=== PATIENT | male | born 1960 | race Caucasian/White ===

== ENCOUNTER 2016-09-22 12:44 | Emergency (ER) | payer OTHER ==
[2016-09-22 12:54] VITALS: RESP 16; TEMP 98.1
--- NOTE | 2016-09-22 13:05 | EDPHY ---
H & P Time Seen by Provider: 09/22/16 13:04 HPI/ROS: Chief complaint. Shoulder pain HPI. 55-year-old male with psychosis and schizoaffective disorder had a shot of Invega in his right shoulder after 3 days ago. He felt that it hit the bone. Since then he has had pain to the right shoulder. He has also had fever it hurts to breathe he has pain to the left shoulder blade as well this somewhat chronic but hurts with movement. He notes the pain in his right shoulder and right chest hurts to walk, brief, move his arm. He has had previous shots without problems. The shot hurt immediately. ROS Constitutional. no fever/chills, no weakness Eyes. no problems with vision ENT. no sore throat, no nasal drainage Cardiovascular. Right shoulder and right chest pain Respiratory. Hurts to breathe but not short of breath Abdominal. no abdominal pain, no nausea/vomiting, no diarrhea . no problems urinating MS. no calf pain/swelling, no neck/back pain, no joint pain Skin. no rash Lymph. no swollen glands Neuro. no headache, no dizziness, no difficulty walking or with speech Past Medical/Surgical History: Past medical history significant for psychosis and schizoaffective disorder, hepatitis-B and C Social History: Single, daily smoker, no alcohol Smoking Status: Current every day smoker Physical Exam: General Appearance: Alert well-developed male mild distress vital signs are stable Eyes: Pupils equal and round no pallor or injection. ENT, Mouth: Mucous membranes are moist. Respiratory: There are no retractions, lungs are clear to auscultation. Cardiovascular: Regular rate and rhythm. Gastrointestinal: Abdomen is soft and nontender, no masses, bowel sounds normal. Neurological: Awake and alert, sensory and motor exams grossly normal. Skin: Warm and dry, no rashes. Musculoskeletal: Tenderness to the lateral deltoid area of the right shoulder. No obvious swelling or deformity Extremities symmetrical, full range of motion. Psychiatric: Patient is oriented X 3, there is no agitation. Constitutional: Initial Vital Signs Temperature (C) 36.7 C 09/22/16 12:52 Heart Rate 91 09/22/16 12:52 Respiratory Rate 16 09/22/16 12:52 Blood Pressure 148/86 H 09/22/16 12:52 O2 Sat (%) 95 02/20/17 12:52 O2 Delivery Mode Room Air Allergies/Adverse Reactions: No Known Allergies Allergy (Verified 07/25/13 20:28) Home Medications: Medication Instructions Recorded Celexa Unk Dose 10/01/12 Cogentin Unk Dose 10/01/12 Trazadone Unk Dose 10/01/12 Hydrocodone Bit/Acetaminophen 1 tab PO Q4-6PRN PRN #14 tab 10/04/12 [Vicodin 5/500] Olanzapine [Zyprexa] 5 mg PO 12/13/13 Risperdal 12/13/13 Indomethacin [Indocin 25 mg (*)] 25 - 50 mg PO TID PRN #20 cap 02/19/14 Omeprazole 20 mg PO DAILY #20 capsule. 02/19/14 Ibuprofen [Motrin] 800 mg PO Q8 #20 tab 04/06/14 clonAZEPAM [Klonopin] 0.25 mg PO 04/06/14 Hydrocodone/APAP 5/325 [[place] 1 each PO Q4-6PRN PRN #14 tab 09/22/16 5/325 (*)] Medical Decision Making - Diagnostics EKG Interpretation: EKG interpreted by me shows normal sinus rhythm with normal interval and axis. QRS is normal there is no significant ST elevation or depression. No arrhythmia. The rate is 74 Imaging: Chest x-ray and right shoulder x-ray interpreted by me as normal Procedures: IV normal saline, monitor Percocet for pain ED Course/Re-evaluation: Re-evaluation the patient is stable. The patient and I discussed imaging study results, laboratory evaluation, treatment plan including criteria for return and the importance of follow-up and further admission Differential Diagnosis: I think this is likely musculoskeletal. I considered acute coronary syndrome as well as pulmonary embolus and pneumothorax. - Data Points Laboratory Results: Laboratory Results 09/22/16 14:32 09/22/16 14:32 09/22/16 09/22/16 09/22/16 14:32 14:32 14:32 WBC 5.40 10^3/uL 10^3/uL (3.80-9.50) RBC 5.51 10^6/uL 10^6/uL (4.40-6.38) Hgb 17.2 g/dL g/dL (13.7-17.5) Hct 48.4 % % (40.0-51.0) MCV 87.8 fL fL (81.5-99.8) MCH 31.2 pg pg (27.9-34.1) MCHC 35.5 g/dL g/dL (32.4-36.7) RDW 13.2 % % (11.5-15.2) Plt Count 136 10^3/uL L 10^3/uL (150-400) MPV 10.4 fL fL (8.7-11.7) Neut % (Auto) 59.6 % % (39.3-74.2) Lymph % (Auto) 27.0 % % (15.0-45.0) [place] % (Auto) 10.4 % % (4.5-13.0) Eos % (Auto) 2.2 % % (0.6-7.6) Baso % (Auto) 0.6 % % (0.3-1.7) Nucleat RBC Rel Count 0.0 % % (0.0-0.2) Absolute Neuts (auto) 3.22 10^3/uL 10^3/uL (1.70-6.50) Absolute Lymphs (auto) 1.46 10^3/uL 10^3/uL (1.00-3.00) Absolute Monos (auto) 0.56 10^3/uL 10^3/uL (0.30-0.80) Absolute Eos (auto) 0.12 10^3/uL 10^3/uL (0.03-0.40) Absolute Basos (auto) 0.03 10^3/uL 10^3/uL (0.02-0.10) Absolute Nucleated RBC 0.00 10^3/uL 10^3/uL (0-0.01) Immature Gran % 0.2 % % (0.0-1.1) Immature Gran # 0.01 10^3/uL 10^3/uL (0.00-0.10) D-Dimer < 0.27 ug/mLFEU ug/mLFEU (0.00-0.50) Sodium 141 mEq/L mEq/L (134-144) Potassium 4.5 mEq/L mEq/L (3.5-5.2) Chloride 103 mEq/L mEq/L (97-110) Carbon Dioxide 26 mEq/l mEq/l (22-31) Anion Gap 12 mEq/L mEq/L (8-16) BUN 18 mg/dL mg/dL (7-23) Creatinine 0.8 mg/dL mg/dL (0.7-1.3) Estimated GFR > 60 Glucose 92 mg/dL mg/dL (70-100) Calcium 10.0 mg/dL mg/dL (8.5-10.4) Troponin I 0.031 ng/mL ng/mL (0-0.034) Medications Given: Discontinued Medications Oxycodone/Acetaminophen (Percocet 5/325) 1 tab PO EDNOW ONE Stop: 09/22/16 14:24 Last Admin: 09/22/16 14:43 Dose: 1 tab Departure - Departure Disposition: Home, Routine, Self-Care Clinical Impression: Right shoulder pain Condition: Good Instructions: Shoulder Pain (ED) Additional Instructions: Sling for 3-4 days. He to right shoulder. Hydrocodone for pain. Return for worsening symptoms. Re-evaluation in 3-4 days if not improved Referrals: Gin Douglas MD [Primary Care Provider] - 3-4 days, if not improved Prescriptions: Hydrocodone/APAP 5/325 [[place] 5/325 (*)] 1 each PO Q4-6PRN PRN #14 tab PRN Reason: Pain, Moderate
[2016-09-22] MEDS ORDERED: OXYCODONE/APAP 5/325 TAB PO ONE (14:23)
[2016-09-22 14:44] LABS: % IMMATURE GRANULYOCYTES 0.2 % (0.0-1.1); ABSOLUTE IMMATURE GRANULOCYTES 0.01 10^3/uL (0.00-0.10); ADD DIFF? NO; ADD MORPH? NO; ADD SCAN? NO; ATYPICAL LYMPHOCYTE FLAG 20 (0-99); FRAGMENT RBC FLAG 0 (0-99); HEMATOCRIT 48.4 % (40.0-51.0); HEMOGLOBIN 17.2 g/dL (13.7-17.5); LEFT SHIFT FLG 0 (0-99); LIPEMIA HEMOLYSIS FLAG 90 (0-99); MEAN CELL HEMOGLOBIN 31.2 pg (27.9-34.1); MEAN CELL HEMOGLOBIN CONCENTR. 35.5 g/dL (32.4-36.7); MEAN CELL VOLUME 87.8 fL (81.5-99.8); MEAN PLATELET VOLUME 10.4 fL (8.7-11.7); PLATELET CLUMPS FLAG 0 (0-99); PLATELET COUNT 136 10^3/uL (150-400); RED BLOOD CELL COUNT 5.51 10^6/uL (4.40-6.38); RED CELL DISTRIBUTION WIDTH 13.2 % (11.5-15.2)
--- NOTE | 2016-09-22 14:48 | CPEKG ---
Heart Rate: 74 RR Interval: 811 P-R Interval: 140 QRSD Interval: 84 QT Interval: 424 QTC Interval: 471 P [place]: 76 QRS [place]: 73 T Wave [place]: 71 EKG Severity - NORMAL ECG - EKG Impression: SINUS RHYTHM Electronically Signed By: Suleiman Zhao 22-Sep-2016 14:59:17
[2016-09-22 15:11] LABS: ANION GAP 12 mEq/L (8-16); CARBON DIOXIDE 26 mEq/l (22-31); CHLORIDE 103 mEq/L (97-110); CREATININE 0.8 mg/dL (0.7-1.3); GLOMERULAR FILTRATION RATE > 60; GLUCOSE 92 mg/dL (70-100); POTASSIUM 4.5 mEq/L (3.5-5.2); SODIUM 141 mEq/L (134-144)
[2016-09-22 15:22] LABS: TROPONIN I 0.031 ng/mL (0-0.034)
[2016-09-22 15:36] VITALS: BP 96/57; PULSE 88; O2SAT 92
== END 2016-09-22 15:35 | disposition home or self-care (01) ==
DX: M25.511 Pain in right shoulder (principal); F17.200 Nicotine dependence, unspecified, uncomplicated
CPT/HCPCS: 71010; 73030; 93005; 99285; A4565

== ENCOUNTER 2016-10-18 10:26 | Emergency (ER) | payer OTHER ==
[2016-10-18 10:31] VITALS: BP 110/74; PULSE 86; RESP 16; TEMP 97.3; O2SAT 96
--- NOTE | 2016-10-18 11:40 | EDPHY ---
H & P Stated Complaint: possible infxn to RUE after invega inj last Time Seen by Provider: 10/18/16 10:37 HPI/ROS: CHIEF COMPLAINT: Right shoulder pain after Invega injection HISTORY OF PRESENT ILLNESS: The patient presents to the ED with complaints of right shoulder pain following an Invega injection to his right shoulder. The patient was seen in the ED approximately 6 weeks ago with similar complaints after receiving an Invega injection in his left shoulder. He was provided with narcotic medications at that point time. He presents to the ED today requesting a refill of narcotic medications. The patient denies fever, erythema or additional complaints. The patient does have some chronic dermatitis on his right arm which is unchanged. The patient denies additional complaints. REVIEW OF SYSTEMS: A comprehensive 10 point review of systems is otherwise negative aside from elements mentioned in the history of present illness. Source: Patient Exam Limitations: No limitations - Personal History Current Tetanus/Diphtheria Vaccine: Yes Current Tetanus Diphtheria and Acellular Pertussis (TDAP): Yes - Medical/Surgical History Hx Asthma: No Hx Chronic Respiratory Disease: No Hx Diabetes: No Hx Cardiac Disease: No Hx Renal Disease: No Hx Cirrhosis: No Hx Alcoholism: No Hx HIV/AIDS: No Hx Splenectomy or Spleen Trauma: No Other PMH: PSYHCOSIS AND SCHIZO EFFECTIVE DISORDER. HERNIA REPAIR, HEP A, B, C - Social History Smoking Status: Current every day smoker - Physical Exam Exam: General Appearance: Alert, disheveled, Eyes: Pupils equal and round no pallor or injection ENT, Mouth: Mucous membranes moist Respiratory: There are no retractions, lungs are clear to auscultation Cardiovascular: Regular rate and rhythm Gastrointestinal: Abdomen is soft and nontender, no masses, bowel sounds normal Neurological: A&O, normal motor function, normal sensory exam, normal cranial nerves Skin: Chronic dermatitis noted to the right arm. No erythema, swelling or fluctuance noted to right shoulder Musculoskeletal: Neck is supple nontender no acute distress Extremities: symmetrical, full range of motion, no clinical evidence of septic arthritis Constitutional: Initial Vital Signs Temperature (C) 36.3 C 10/18/16 10:28 Heart Rate 86 10/18/16 10:28 Respiratory Rate 16 10/18/16 10:28 Blood Pressure 110/74 10/18/16 10:28 O2 Sat (%) 96 10/18/16 10:28 O2 Delivery Mode Room Air Allergies/Adverse Reactions: No Known Allergies Allergy (Verified 07/25/13 20:28) Home Medications: Medication Instructions Recorded Celexa Unk Dose 10/01/12 Cogentin Unk Dose 10/01/12 Trazadone Unk Dose 10/01/12 Hydrocodone Bit/Acetaminophen 1 tab PO Q4-6PRN PRN #14 tab 10/04/12 [Vicodin 5/500] Olanzapine [Zyprexa] 5 mg PO 12/13/13 Risperdal 12/13/13 Indomethacin [Indocin 25 mg (*)] 25 - 50 mg PO TID PRN #20 cap 02/19/14 Omeprazole 20 mg PO DAILY #20 capsule. 02/19/14 Ibuprofen [Motrin] 800 mg PO Q8 #20 tab 04/06/14 clonAZEPAM [Klonopin] 0.25 mg PO 04/06/14 Hydrocodone/APAP 5/325 [[place] 1 each PO Q4-6PRN PRN #14 tab 09/22/16 5/325 (*)] Hydrocodone/APAP 5/325 [[place] 1 - 2 each PO Q6 PRN #6 tab 10/18/16 5/325] Medical Decision Making ED Course/Re-evaluation: The patient presents to the ED with right shoulder pain following a injection of Invega. The patient will be given a short course of Vicodin. I have told the patient that we will not refill Vicodin for pain after psychotropic injections in the future. He will need to have his pain managed by his primary care provider at [facility]. Departure - Departure Disposition: Home, Routine, Self-Care Clinical Impression: Right shoulder pain Condition: Good Instructions: Shoulder Pain (ED) Additional Instructions: 1. You have been given a short course of pain medication. We will be unable to give you narcotic pain medications in the future for any chronic pain surrounding your psychiatric injections. 2. Please follow up with your regular physician as scheduled. Referrals: Gin Douglas MD [Primary Care Provider] - As per Instructions
== END 2016-10-18 12:02 | disposition home or self-care (01) ==
DX: M25.511 Pain in right shoulder (principal); F17.200 Nicotine dependence, unspecified, uncomplicated

== ENCOUNTER 2017-03-30 08:06 | Emergency (ER) | payer OTHER ==
[2017-03-30 08:19] VITALS: RESP 18
--- NOTE | 2017-03-30 08:48 | EDPHY ---
H & P Stated Complaint: Low back and groin pain after walking down a hill "real fast"; no injury Time Seen by Provider: 03/30/17 08:47 - Personal History Current Tetanus Diphtheria and Acellular Pertussis (TDAP): Yes - Medical/Surgical History Hx Asthma: No Hx Chronic Respiratory Disease: No Hx Diabetes: No Hx Cardiac Disease: No Hx Renal Disease: No Hx Cirrhosis: No Hx Alcoholism: No Hx HIV/AIDS: No Hx Splenectomy or Spleen Trauma: No Other PMH: PSYCHOSIS AND SCHIZO EFFECTIVE DISORDER. HERNIA REPAIR, HEP A, B, C - Social History Smoking Status: Current every day smoker Constitutional: Initial Vital Signs Temperature (C) 36.4 C 03/30/17 08:10 Heart Rate 76 03/30/17 08:10 Respiratory Rate 18 03/30/17 08:10 Blood Pressure 122/93 H 03/30/17 08:10 O2 Sat (%) 95 03/30/17 08:10 O2 Delivery Mode Room Air Allergies/Adverse Reactions: No Known Allergies Allergy (Verified 03/30/17 08:13) Home Medications: Medication Instructions Recorded Cogentin Unk Dose 10/01/12 clonAZEPAM [Klonopin] 0.25 mg PO 04/06/14 Diclofenac Sodium [Voltaren-XR] 100 mg PO DAILY #20 tab.sr.24h 03/30/17 Efzima 03/30/17 Paliperidone Palmitate [Invega 117 mg IM ONCE 03/30/17 Sustenna] Medical Decision Making - Diagnostics Imaging Results: Imaging Impressions Lumbar Spine X-Ray 03/30/17 09:04 Impression: 1. No acute fracture. 2. Severe degenerative disk and facet arthropathy at L5-S1 is worse since 2009. Imaging: Discussed imaging studies w/ crew caller Radiologist, I viewed and interpreted images myself ED Course/Re-evaluation: CHIEF COMPLAINT: Back pain HISTORY OF PRESENT ILLNESS: The patient is a 56 y/o male complaining of mild lumbar back pain after walking down a hill briskly on Thursday, 3 days ago. He denies falling or other trauma; he cannot identify other precipitating causes for this symptoms today. Denies weakness, paraesthesias, difficulty walking, incontinence. He denies pertinent medical history. REVIEW OF SYSTEMS: A 10 point review of systems was performed and is negative with the exception of the elements mentioned in the history of present illness. PHYSICAL EXAM: HR, BP, O2 Sat, RR. Temp noted General Appearance: Alert, well hydrated, appropriate, and non-toxic appearing. Head: Atraumatic without scalp tenderness or obvious injury Eyes: Pupils equal, round, reactive to light and accommodation, EOMI, no trauma , no injection. Nose: Atraumatic, no rhinorrhea, clear. Throat: Mucus membranes moist. Neck: Supple, nontender, no lymphadenopathy. Respiratory: No retractions, no distress, no wheezes, and no accessory muscle use. Lungs are clear to auscultation bilaterally. Cardiovascular: Regular rate and rhythm, no murmurs, rubs, or gallops. Good capillary refill all extremities. Gastrointestinal: Abdomen is soft, nontender, non-distended, no masses, no rebound, no guarding, no peritoneal signs. Musculoskeletal: Mild midline lumbar spine tenderness. Normal active ROM of all extremities, atraumatic. Neurological: Alert, appropriate, and interactive. Non-focal neuro. Skin: No rashes, good turgor, no nodules on palpation. Past medical history: Hep A, B, and C, psychosis and schizo effective disorder Past surgical history: Hernia repair Family history: Denies Social history: Smoker, lives in [place], un-employed Past medical records reviewed for ED visit from Dr. Efrain Bashir on 10/18/16 DIAGNOSTICS/PROCEDURES/CRITICAL CARE TIME: Lumbar spine x-ray: Negative DIFFERENTIAL DIAGNOSIS: The differential diagnosis for the patient's back pain included but was not limited to musculoskeletal pain, epidural abscess, herniated disk, spinal fracture, and intra-abdominal causes including urinary system. MEDICAL DECISION MAKING: The patient is a 56 y/o male who presents with lumbar spine tenderness for three days. On exam abdomen is benign and he is neurovascularly intact. Plan on lumbar spine x-ray to rule acute osseous abnormality. Reassessed patient and discussed imaging results. X-ray is negative. Discussed follow up with a back specialist for unimproved symptoms. Diclofenac prescribed for pain management. Return precautions provided, he is comfortable with this plan. Departure - Departure Disposition: Home, Routine, Self-Care Clinical Impression: Lumbar back pain Qualifiers: Chronicity: unspecified Back pain laterality: unspecified Sciatica presence: without sciatica Qualified Code(s): M54.5 - Low back pain Condition: Good Instructions: Low Back Strain (ED), Back Pain (ED) Additional Instructions: 1. Take Diclofenac as prescribed for pain. Do not take ibuprofen. 2. Follow up with your primary care provider for unimproved symptoms in the next 3-5 days. 3. Return to the ED for severe worsening of your condition. Referrals: Gin Douglas MD [Primary Care Provider] - As per Instructions Prescriptions: Diclofenac Sodium [Voltaren-XR] 100 mg PO DAILY #20 tab.sr.24h Report Scribed for: Zaid Caba Report Scribed by: Verito Farley Date of Report: 03/30/17 Time of Report: 09:43
[2017-03-30 09:55] VITALS: BP 141/97; PULSE 73; TEMP 97.7; O2SAT 91
== END 2017-03-30 09:55 | disposition home or self-care (01) ==
DX: M54.5 Low back pain (principal); F17.200 Nicotine dependence, unspecified, uncomplicated

== ENCOUNTER 2017-05-31 11:01 | Emergency (ER) | payer OTHER ==
--- NOTE | 2017-05-31 13:26 | EDPHY ---
General Narrative: CHIEF COMPLAINT: Right finger laceration HISTORY OF PRESENT ILLNESS: Patient complains of laceration of the right little finger. This occurred this morning when removing a knife in his home. This fell and struck him in the right little finger. TIME OF INJURY: 10:00 a.m. TETANUS STATUS: Less than 2 years ago MEDICAL/SURGICAL/SOCIAL HISTORY: Hepatitis-C, schizophrenia Daily smoker. REVIEW OF SYSTEMS: Ten systems reviewed and are negative unless otherwise noted in the HPI EXAMINATION General Appearance: Alert, no distress Head: normocephalic, atraumatic Cardiovascular: Pulses normal throughout. Symmetric radial at 2+. Brisk cap refill Neurological: A&O, sensory symmetric, strength symmetric. Good strength of the interossei pain Skin: Warm and dry, no rash. One 0.5 cm laceration on the right little finger , radial side. No involvement of the nail. This is over the distal phalanx. No bleeding. No foreign body. No tendon injury Extremities: Mild tenderness over the area laceration. There is full flexion extension of all fingers on the right hand. No deficits. No evidence of tendon injury. Neurovascular intact distal to the laceration DIFFERENTIAL DIAGNOSES: Including but not limited to laceration, complex laceration, laceration with an injury MDM: 12:20 p.m. Laceration to the right little finger. He is neurovascular intact distally. The digital block is been administered. Proceed with irrigation closure. 1:20 p.m. Laceration of the right index finger over the distal phalanx without involvement of the nail. This has been closed without complication. He is neurovascular intact pre and postprocedure. No evidence of tendon injury. No foreign body. Discharged home with medications as prescribed. Wound care discussed. Adaptic and tube gauze applied. This is a 2 day dressing. Return here in 7-10 days for suture removal. Return sooner for signs of infection as discussed. PROCEDURE: Digital Block Indication: Finger laceration Consent: Verbal Location: Right little finger Anesthesia: Lidocaine 1% plain, 0.25% Marcaine plain, 5mL Description: Base of the finger was prepped. The above was infused without difficulty. Tolerated well. Good anesthesia. Complications: None PROCEDURE: Laceration repair Consent: Verbal Location: Right little finger, radial side, distal phalanx Length of repair: 1.5 cm Complexity: Simple Layer involvement: Single Anesthesia: Digital block Irrigation: Extensive Debridement: None Procedure description: Following good anesthesia, the wound was copiously irrigated. Wound bed was explored and there is no foreign body noted. No tendon exposure Wound borders were approximated well with good hemostasis. Tolerated well without complication. Suture/Staple material: 5-0 Prolene. Four simple interrupted sutures Wound care: Routine as discussed Suture/Staple removal: 7-10 Days ED Precautions: Worsening pain. Erythema, edema, cyanosis, pallor, paresthesia or anesthesia. - History Smoking Status: Current every day smoker - Objective Vital Signs: Initial Vital Signs Temperature (C) 98.6 F 05/31/17 11:05 Heart Rate 81 05/31/17 11:05 Respiratory Rate 16 05/31/17 11:05 Blood Pressure 112/78 05/31/17 11:05 O2 Sat (%) 98 05/31/17 11:05 O2 Delivery Mode Room Air Allergies/Adverse Reactions: No Known Allergies Allergy (Verified 03/30/17 08:13) Home Medications: Medication Instructions Recorded Cogentin Unk Dose 10/01/12 clonAZEPAM [Klonopin] 0.25 mg PO 04/06/14 Paliperidone Palmitate [Invega 117 mg IM ONCE 03/30/17 Sustenna] Amoxicillin/Clavulanate Pot 875 mg PO BID #20 tab 05/31/17 [Augmentin 875 MG TAB (*)] Departure - Departure Disposition: Home, Routine, Self-Care Clinical Impression: Laceration Condition: Good Instructions: Care For Your Stitches (ED), Laceration (ED) Additional Instructions: 1. Medication as prescribed to completion 2. Daily wound care as discussed 3. Return to emergency department in 7-10 days for suture removal Referrals: Gin Douglas MD [Primary Care Provider] - As per Instructions Prescriptions: Amoxicillin/Clavulanate Pot [Augmentin 875 MG TAB (*)] 875 mg PO BID #20 tab
[2017-05-31 13:41] VITALS: BP 125/97; PULSE 95; RESP 18; TEMP 98.2; O2SAT 94
== END 2017-05-31 13:41 | disposition home or self-care (01) ==
LOC: EEVIPCON 11:01
PROC: 0HQFXZZ Repair Right Hand Skin, External Approach (ICD-10-PCS; principal; 2017-05-31)
DX: S61.216A Laceration without foreign body of right little finger without damage to nail, initial encounter (principal); F17.200 Nicotine dependence, unspecified, uncomplicated; W26.0XXA Contact with knife, initial encounter; Y92.009 Unspecified place in unspecified non-institutional (private) residence as the place of occurrence of the external cause

== ENCOUNTER 2017-11-08 16:23 | Emergency (ER) | payer OTHER ==
--- NOTE | 2017-11-08 17:19 | EDPHY ---
General - History Smoking Status: Current every day smoker Time Seen by Provider: 11/08/17 17:13 Narrative: CHIEF COMPLAINT: Hernia, cough HISTORY OF PRESENT ILLNESS: Patient has 2 complaints. The 1st is "hernia in my abdomen." He reports that this has been present for nearly a year. It is periumbilical/ventral. It has become increasingly painful over the past few weeks. He has never been evaluated for this by surgeon. He has had 4 previous hernia repairs. No vomiting. No bowel movement today but did have a bowel movement 2 days ago. No fever chills. His 2nd complaint is cough. This been present for 3-4 days. Productive. Difficulty with breathing with this. He feels that he may have been wheezing. He has no chest pain but does have a painful cough. No shortness of breath unless he lays supine. No other associated complaints or modifying factors. REVIEW OF SYSTEMS: Ten systems reviewed and are negative unless otherwise noted in the HPI PCP: Dr. Douglas SPECIALISTS: None currently PAST MEDICAL HISTORY: Hernia repair x4 at outside facilities, schizoaffective PAST SURGICAL HISTORY: Hernia repair x4 SOCIAL HISTORY: Daily smoker. Occasional alcohol and marijuana use. Currently on disability and does not work FAMILY HISTORY: Noncontributory EXAMINATION General Appearance: Alert, no distress. Strong odor of THC about him Head: normocephalic, atraumatic Eyes: Pupils equal and round, no conjunctival pallor or injection ENT, Mouth: Mucous membranes moist. Uvula midline. There is erythema of the throat that appears exogenous. No exudate. Airway is widely patent. Neck: Normal inspection, supple, non-tender. No meningeal signs. Respiratory: Scattered rhonchi. No wheezing. No crackles. No diminishment no consolidation. No retractions or distress Cardiovascular: Regular rate and rhythm. No murmur Gastrointestinal: Abdomen is soft and nondistended. There is an obvious periumbilical hernia that easily reduces with palpation and with complete relaxation of the abdomen in supine position. No palpable mass. No tenderness in the remaining quadrants. No guarding. Bowel sounds are present in the area of hernia. Neurological: A&O, nonfocal, normal gait Skin: Warm and dry, no rash. Multiple tattoos Extremities: Nontender, no pedal edema Psychiatric: Mood and affect normal DIFFERENTIAL DIAGNOSES: Including but not limited to ventral hernia, incarcerated hernia, strangulated hernia, periumbilical hernia, pneumonia, bacterial bronchitis, viral bronchitis , pneumonitis MDM: 5:30 p.m. Large periumbilical/ventral hernia that is easily reducible. This reduces spontaneously with rest and also with simple palpation. His abdominal exam is otherwise benign. I do not appreciate any evidence of incarceration or strangulation. I do not feel he warrants a CT scan of the abdomen pelvis at this time. He has no vomiting. No constipation. No fever. He has secondary complaint of cough that suggest bronchitis on examination. I do not appreciate pneumonia. Vital signs are within normal limits. He is a smoker, thus I will treat him with antibiotics for the possibility of bacterial bronchitis. We discussed smoking cessation. We discussed anti-inflammatories, over-the- counter cough medicine and ED precautions for both the scenarios. He has an appointment tomorrow morning with his primary care physician Dr. Douglas. He has instructions to discuss this with her and I provided the on-call surgeon for him. He is comfortable this plan and discharged home stable condition SUPERVISION: Patient was independently examined, but I discussed the case with my secondary supervising physician Dr. Murphy ([facility]) The patient was evaluated and managed by the physician assistant professor of spanish. I have reviewed this chart and I agree with the findings and plan of care as documented , as indicated by my signature. I am the secondary supervising physician. ( Courtney Murphy) - Objective Vital Signs: Initial Vital Signs Temperature (C) 36.4 C 11/08/17 16:53 Heart Rate 87 11/08/17 16:53 Respiratory Rate 18 11/08/17 16:53 Blood Pressure 101/71 11/08/17 16:53 O2 Sat (%) 94 11/08/17 16:53 O2 Delivery Mode Room Air Allergies/Adverse Reactions: No Known Allergies Allergy (Verified 11/08/17 16:53) Home Medications: Medication Instructions Recorded Cogentin Unk Dose 10/01/12 clonAZEPAM [Klonopin] 0.25 mg PO 04/06/14 Paliperidone Palmitate [Invega 117 mg IM ONCE 03/30/17 Sustenna] Amoxicillin/Clavulanate Pot 875 mg PO BID #19 tab 11/08/17 [Augmentin 875 MG TAB (*)] Benzonatate [Tessalon Pearles (RX)] 100 mg PO Q8 PRN #15 cap 11/08/17 Dextromethorphan Polistirex 30 mg PO BID #1 btl 11/08/17 [Delsym] Medications Given: Discontinued Medications Amoxicillin/Clavulanate Potassium (Augmentin 875mg) 875 mg PO EDNOW ONE PRN Reason: Protocol Stop: 11/08/17 17:35 Last Admin: 11/08/17 17:53 Dose: 875 mg Benzonatate (Tessalon Pearles) 200 mg PO EDNOW ONE Stop: 11/08/17 17:43 Last Admin: 11/08/17 17:53 Dose: 200 mg Departure - Departure Disposition: Home, Routine, Self-Care Clinical Impression: Acute bronchitis, Ventral hernia without obstruction or gangrene Condition: Good Instructions: Umbilical Hernia (ED), Ventral Hernia (ED) Additional Instructions: 1. Medication as prescribed to completion 2. Keep your appointment tomorrow morning as scheduled with Dr. Douglas 3. You will need to discuss referral to general surgeon for the abdominal hernia. 4. Return to the emergency department for vomiting, fever, increasing abdominal pain, constipation or any chest pain Referrals: Gin Douglas MD [Primary Care Provider] - As per Instructions Arleth Bernard MD [Medical Doctor] - As per Instructions Prescriptions: Amoxicillin/Clavulanate Pot [Augmentin 875 MG TAB (*)] 875 mg PO BID #19 tab Benzonatate [Tessalon Pearles (RX)] 100 mg PO Q8 PRN #15 cap PRN Reason: Cough, Mild Dextromethorphan Polistirex [Delsym] 30 mg PO BID #1 btl
[2017-11-08] MEDS ORDERED: AMOXICILLIN/CLAVULANATE POT 875/125 MG TAB PO ONE (17:34)
[2017-11-08] MEDS ORDERED: BENZONATATE 100 MG CAP PO ONE (17:42)
[2017-11-08 18:01] VITALS: BP 105/72
== END 2017-11-08 18:00 | disposition home or self-care (01) ==
DX: J20.9 Acute bronchitis, unspecified (principal); K43.9 Ventral hernia without obstruction or gangrene; F17.200 Nicotine dependence, unspecified, uncomplicated

== ENCOUNTER 2018-02-04 18:15 | Inpatient (IN) | payer OTHER ==
--- NOTE | 2018-02-04 18:28 | EDPHY ---
General Time Seen by Provider: 02/04/18 18:19 Narrative: CHIEF COMPLAINT: M1 hold HISTORY OF PRESENT ILLNESS: Patient presents on an M1 hold with reported schizoaffective disorder, medication noncompliance, paranoid delusions and lack of self-care. The patient will not answer any by questions and denies any complaints. I am not able to obtain any modifying factors, associated complaints or any further information due to lack of cooperation from the patient. I have reviewed the M1 documentation. PSYCHIATRIC DIAGNOSES: Will not answer my questions, but there is documentation of schizoaffective disorder PRIOR PSYCHIATRIC EVALUATIONS: Will not answer my questions M1/DETAINER: By [facility] WILDLIFE PROTECTOR at 1800 today REVIEW OF SYSTEMS: Ten systems reviewed and are negative unless otherwise noted in the HPI EXAMINATION General Appearance: Alert, no distress Head: normocephalic, atraumatic Eyes: Pupils equal and round, no conjunctival pallor or injection. Will not comply with EOM testing. He is tracking symmetrically in following my movements. ENT, Mouth: Mucous membranes moist. Poor dentition Neck: Normal inspection. Moving his neck in all 4 planes without complaints Respiratory: Lungs are clear to auscultation. No wheezing rhonchi or crackles Cardiovascular: Regular rate and rhythm. No murmur Neurological: Normal steady gait. He will not answering my questions regarding his mental status Skin: Multiple tattoos. Appears to be grossly intact Extremities: Moving extremities spontaneously but will not allow examination. Psychiatric: Flat affect. Will not answer any of my questions DIFFERENTIAL DIAGNOSES: Including but not limited to schizoaffective disorder, schizophrenia, paranoid delusions, psychotic break, medication noncompliance, polysubstance abuse MDM: 6:25 p.m. M1 due to reported schizoaffective disorder with paranoid delusions and medication noncompliance. The patient will not provide any information to me whatsoever and keep still me to "read the report." He does not appear to be in any acute distress. I have reviewed his vital signs of a within normal limits. He has been placed on an M1 hold prior to arrival will proceed with medical clearance for evaluation. 7:40 p.m. CBC and chemistry unremarkable. Pending urine drug screen at this time. 8:20 p.m. Patient has been medically cleared and is currently pending placement for inpatient psychiatric care. 8:50 p.m. Notified by Emi that patient has been accepted to [address] [place] [address] [facility]. The accepting physician is Dr. Adkins. Dr. Spencer will sign the EMTALA form. The patient has remained calm and cooperative in this emergency department without the need for medication intervention. SUPERVISION: Patient was independently examined, but I discussed the case with my secondary supervising physician Dr. Spencer - History Smoking Status: Current every day smoker - Objective Vital Signs: Initial Vital Signs Temperature (C) 97.7 F 02/04/18 18:15 Heart Rate 76 02/04/18 18:15 Respiratory Rate 16 02/04/18 18:15 Blood Pressure 104/62 02/04/18 18:15 O2 Sat (%) 95 02/04/18 18:15 O2 Delivery Mode Room Air Allergies/Adverse Reactions: No Known Allergies Allergy (Verified 11/08/17 16:53) Home Medications: Medication Instructions Recorded Cogentin Unk Dose 10/01/12 clonAZEPAM [Klonopin] 0.25 mg PO 04/06/14 Paliperidone Palmitate [Invega 117 mg IM ONCE 03/30/17 Sustenna] Amoxicillin/Clavulanate Pot 875 mg PO BID #19 tab 11/08/17 [Augmentin 875 MG TAB (*)] Benzonatate [Tessalon Pearles (RX)] 100 mg PO Q8 PRN #15 cap 11/08/17 Dextromethorphan Polistirex 30 mg PO BID #1 btl 11/08/17 [Delsym] Laboratory Results: Laboratory Results 02/04/18 18:54 02/04/18 18:54 02/04/18 02/04/18 02/04/18 19:20 18:54 18:54 WBC 3.21 10^3/uL L 10^3/uL (3.80-9.50) RBC 4.87 10^6/uL 10^6/uL (4.40-6.38) Hgb 15.0 g/dL g/dL (13.7-17.5) Hct 42.1 % % (40.0-51.0) MCV 86.4 fL fL (81.5-99.8) MCH 30.8 pg pg (27.9-34.1) MCHC 35.6 g/dL g/dL (32.4-36.7) RDW 13.6 % % (11.5-15.2) Plt Count 92 10^3/uL L 10^3/uL (150-400) MPV 10.6 fL fL (8.7-11.7) Neut % (Auto) 62.3 % % (39.3-74.2) Lymph % (Auto) 26.2 % % (15.0-45.0) [place] % (Auto) 7.2 % % (4.5-13.0) Eos % (Auto) 3.1 % % (0.6-7.6) Baso % (Auto) 0.6 % % (0.3-1.7) Nucleat RBC Rel Count 0.0 % % (0.0-0.2) Absolute Neuts (auto) 2.00 10^3/uL 10^3/uL (1.70-6.50) Absolute Lymphs (auto) 0.84 10^3/uL L 10^3/uL (1.00-3.00) Absolute Monos (auto) 0.23 10^3/uL L 10^3/uL (0.30-0.80) Absolute Eos (auto) 0.10 10^3/uL 10^3/uL (0.03-0.40) Absolute Basos (auto) 0.02 10^3/uL 10^3/uL (0.02-0.10) Absolute Nucleated RBC 0.00 10^3/uL 10^3/uL (0-0.01) Immature Gran % 0.6 % % (0.0-1.1) Immature Gran # 0.02 10^3/uL 10^3/uL (0.00-0.10) Sodium 135 mEq/L mEq/L (135-145) Potassium 3.5 mEq/L mEq/L (3.3-5.0) Chloride 105 mEq/L mEq/L (97-110) Carbon Dioxide 25 mEq/l mEq/l (22-31) Anion Gap 5 mEq/L L mEq/L (8-16) BUN 11 mg/dL mg/dL (7-23) Creatinine 0.8 mg/dL mg/dL (0.7-1.3) Estimated GFR > 60 Glucose 106 mg/dL H mg/dL (70-100) Calcium 8.7 mg/dL mg/dL (8.5-10.4) Urine Opiates Screen NEGATIVE (NEGATIVE) Urine Barbiturates NEGATIVE (NEGATIVE) Ur Phencyclidine Scrn NEGATIVE (NEGATIVE) Ur Amphetamine Screen NON-NEGATIVE H (NEGATIVE) U Benzodiazepines Scrn NEGATIVE (NEGATIVE) Urine Cocaine Screen NEGATIVE (NEGATIVE) U Marijuana (THC) Screen NON-NEGATIVE H (NEGATIVE) Ethyl Alcohol < 10 mg/dL mg/dL (0-10) Medications Given: Discontinued Medications Lorazepam (Ativan) 1 mg PO EDNOW ONE Stop: 02/04/18 19:15 Last Admin: 02/04/18 19:16 Dose: 1 mg Ranitidine HCl (Zantac) 150 mg PO EDNOW ONE Stop: 02/04/18 19:01 Last Admin: 02/04/18 19:04 Dose: 150 mg Departure - Departure Disposition: [facility] IP Clinical Impression: Medical clearance for psychiatric admission Schizoaffective disorder Qualifiers: Schizoaffective disorder type: unspecified Qualified Code(s): F25.9 - Schizoaffective disorder, unspecified Condition: Good
[2018-02-04] MEDS ORDERED: RANITIDINE SYRUP 15 MG/1 ML UDSYR PO ONE (18:50)
[2018-02-04] MEDS ORDERED: RANITIDINE HCL 150 MG/10 ML UDCUP PO ONE (19:00)
[2018-02-04 19:14] LABS: PLATELET COUNT 92 10^3/uL (150-400)
[2018-02-04] MEDS ORDERED: LORazepam 1 MG TAB PO ONE (19:14)
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
--- NOTE | 2018-02-04 21:33 | ASMTTCLDSP ---
TLC Discharge Disposition Disposition: Answers: Admit Discharge Concerns/Recommendations: Notes: In consultation with [facility] ED physician, Reilly Spencer MD, and on-call psychiatrist, Gissel Adkins MD, both concurred that pt appears to meet 27-65 criteria requiring psychiatric hospitalization as pt appears to be gravely disabled due to a mental illness condition Type of Hold: Answers: M1/72-hour Hold Hold initiated by: Answers: Other Notes: SUPERVISING BAILIFF at [facility] Date Signed: 02/04/2018 09:33 PM Electronically Signed By:Emi Rich
[2018-02-04] MEDS ORDERED: LORazepam 1 MG TAB PO PRN (22:23)
[2018-02-04] MEDS ORDERED: OLANZapine DISINTEGR 5 MG TAB PO PRN (22:23)
[2018-02-04] MEDS ORDERED: NICOTINE POLACRILEX 2 MG GUM B PRN (22:23)
[2018-02-04] MEDS ORDERED: MAGNESIUM HYDROXIDE 30 ML UDCUP PO PRN (22:23)
[2018-02-04] MEDS ORDERED: MAG HYDROX/AL HYDROX/SIMETH 30 ML UDCUP PO PRN (22:23)
[2018-02-04] MEDS ORDERED: ACETAMINOPHEN 325 MG TAB PO PRN (22:23)
[2018-02-05] MEDS: NICOTINE 14 MG/24 HR PATCH TD SCH (08:48)
--- NOTE | 2018-02-05 10:21 | ASMTBHMTP ---
Master Treatment Plan Master Treatment Plan Answers: Mood Instability with for: Psychosis Date: 02/05/2018 Diagnosis on Admission: Schizoaffective Expected length of stay: 3-5 Days Reason for admission: Notes: 57 year old male, open to P who was cabbed to the [facility] by Dr. Fried for help to get back on his medications. Patient's stated presenting problems: Notes: Had a meltdown, due to being out of medication Patient's goals for treatment: Notes: Go home Patient's strengths: Notes: Play guitar Identify supports outside of hospital: Notes: Got a whole house full of support Discharge criteria: Notes: Patient will demonstrate more stable mood by discharge Initial disposition plan/considerations: Notes: Return home Master Treatment Plan Required Signatures Psychiatrist signature: Answers: NIEVES Crespo: RN on-shift signature: Answers: RN: Patient signature: Answers: Patient: Date Signed: 02/05/2018 10:20 AM Electronically Signed By:Caitlin Gill
--- NOTE | 2018-02-05 11:50 | BAPA ---
[f rep st] ADMISSION PSYCHIATRIC ASSESSMENT DATE OF SERVICE: 02/05/2018 CHIEF COMPLAINT: "had a meltdown due to being out of medications." HISTORY OF PRESENT ILLNESS: Pertinent data from the ED note dated 02/04/2018: The patient presented to the ER on M1 hold with reported schizoaffective disorder, medication noncompliance, paranoid delusions, and lack of self care. The patient did not answer any questions and denied any complaints. The patient did not cooperate. Therefore, further information was unable to be obtained during the ER assessment. Pertinent data per [facility] evaluation: The patient is on an M1 hold. Hold was placed 02/04/2018 at 6:00 p.m. Patient statement to the [facility] millinery department manager: "My nurse told me I should come here, take a little rest and go home." [facility] reported that the patient is open to [facility], who recommended that patient go to the walk-in clinic by Dr. Fried for help to get back on his medications. The patient reported he has not been eating, is overwhelmed by preparing, eating and cleaning up food. [facility] noted that the patient has been off his medications for 7 days. The patient reported auditory hallucinations, visual hallucinations, command auditory hallucinations saying his voices and sees things "23/02." The patient does not report any specific ways the voices are controlling him. The patient was admitted involuntarily and is on an M1 hold due to being gravely disabled. Is hospitalized for safety, crisis stabilization and medication evaluation. The patient describes circumstances that led to current hospitalization as having no medications and reported to this INSPECTOR PACKAGER that he does not know what medications he needs to be on or has been prescribed in the past. The patient reports current mental health illness as schizoaffective disorder , bipolar type. The patient reports to this INSPECTOR PACKAGER that he was diagnosed with this disorder about 3 years ago. The patient reports current alcohol and/or substance abuse that contributed to current hospitalization as was using substances, but it has been weeks ago. The patient's UDS was positive for amphetamine and positive for marijuana. When ask about this, the patient reported he had no idea how his UDS could be positive for the substances because he did not use any of these substances prior to his admission. The patient describes current psychiatric symptoms as auditory hallucinations. The patient is unwilling to provide any further details at this time regarding these symptoms. The patient does not appear to be attending to internal stimuli. The patient denies other psychiatric symptoms including symptoms of depression, sarika, anxiety, attention deficit hyperactivity disorder, OCD, PTSD , and any other symptom of a psychiatric disorder. The patient does appear to be agitated at this time. The patient describes current psychiatric symptoms are impacting managing his day-to-day life described as unemployed. States he does socialize with friends from time to time. The patient reports he does get along with his family. Enjoys fishing and hunting and reports he is currently not satisfied with his life. The patient denies current suicidal ideation. Denies current homicidal ideation and denies current self-injurious ideation. The patient reports protective factors or reasons to live as his children. Reports his future goal is seeing his children. Reports his children live in [place], [place]. The patient describes his support network as himself. The patient reports he sees Dr. Fried for medication management and reports he also sees [facility] for therapy. PAST PSYCHIATRIC HISTORY: The patient describes the following psychiatric history: The patient reports a history of schizoaffective disorder. Reports he has been on Zyprexa, Invega, Ativan, and several other medications in the past. However, reports that none of these medications were helpful and the medications he is currently on have been prescribed by Dr. Fried at [facility]. The patient reports he wants to continue these medications and case management is currently in the process of contacting Dr. Fried's office to get the list of medications so they can be restarted for the patient during this hospitalization. The patient reports he has been hospitalized in inpatient psychiatric hospital before. However, he states he cannot remember when, he cannot remember where, he cannot remember how many times. The patient describes no history of withdrawal from drugs or alcohol. The patient reports he has attempted suicide a long time ago, but he does not remember how, exactly when or exactly why. The patient reports no history of self-injurious behavior. ALLERGIES: No known drug allergies. PAST MEDICAL HISTORY: The patient describes the following: The patient reports no history of neurological disorder, traumatic brain injury, major illnesses or major hospitalizations. SOCIAL HISTORY: The patient describes the following social history: The patient reports he was born in [place] and was raised the majority of his life in [place] by both parents. The patient reports he is currently living in [place], [place] at [address]. The patient describes he met all his developmental milestones. Reports no learning delays or difficulties and describes his sexual orientation is heterosexual. The patient reports he is currently not in a relationship, has been once, once and provides no further details regarding his past marital history. The patient reports he has 2 children. States he is unemployed. His highest level of education is high school. Reports no duty history. Describes his hoahaoism and spiritual practices Buddhist and states he is currently not facing any legal charges. SUBSTANCE USE HISTORY: The patient reports he drinks 2 beers per day. Smokes 3 cigarettes per day. Uses marijuana occasionally and quantifies that by stating he uses marijuana about once a month. The patient reports has used meth , but it was years ago. The patient states he has used cocaine, but that was years ago. The patient describes using crack, but that was years ago. The patient states he has never used heroin, has never abused prescription medications and has used no other illicit substances. FAMILY PSYCHIATRIC HISTORY: The patient describes the following family psychiatric history: The patient reports he is unsure if he has any family history of a mental illness. Reports no family history of suicide or suicide attempts. Reports no family history of substance abuse or alcohol abuse. ADMISSION LABS AND STUDIES: CBC drawn on 02/04/2018: White blood cells low at 3.21, platelet count low at 92, absolute lymphocytes auto low at 0.84, absolute monocytes low at 0.23. Chemistry drawn 02/04/2018: Within normal limits except for anion gap low at 5. Glucose elevated at 106. Toxicology screen from 02/04/2018: Non-negative for amphetamines, non-negative for marijuana and negative for all other illicit substances including ethyl alcohol. MENTAL STATUS EXAM: The patient is an undernourished male, looking older than chronological age. Attire is appropriate. Dress is hospital garb and is disheveled. Ambulation is independent. Gait is normal and coordinated. Posture is abnormal, tense and edge of seat. Eye contact is inappropriate and excessive. Motor activity is appropriate with purposeful, organized, coordinated movements with no involuntary movements noted. Attitude is cooperative. However, the patient is defensive at times and appears to be agitated with some interview questions. The patient appears disinterested and does not relate well to this interviewer. Language production is spontaneous. Rate is normal. Latency of response is shortened with irritable tone and appropriate volume and amount is appropriate. Articulation is clear. The patient reports mood as irritable with adequately ranged and congruent affect. The patient's thought process is fairly linear and logical with no loose associations, tangential thought, thought blocking, concrete thinking, or any other signs of formal thought disorder. The patient does not report suicidal or homicidal thoughts, ideas, or plans. The patient does report auditory hallucinations. The patient denies visual hallucinations. The patient denies delusions. The patient does not appear to be attending to internal stimuli throughout the course of the interview. The patient is oriented to person, place, time, and situation. The patient's attention and concentration are adequate. The patient's insight and judgment are poor. When asked to complete a day simple cognitive function test, the patient reports that he does not want to do that at this time and refuses any cognitive testing. DIAGNOSES: 1. Unspecified psychosis. 2. Rule out schizoaffective disorder. 3. Substance induced psychotic disorder. 4. Cannabis use disorder. 5. Substance use disorder, amphetamine type. FORMULATION: The patient is a 57-year-old male, single, unemployed, living in [place], who presents to hospital involuntary due to inability to care for himself and is currently on an M1 hold. The patient requires continued inpatient care because of current psychosis, notably, his reports of auditory hallucinations and recent crisis that led to this hospitalization. The patient presents with problems of psychosis including reporting auditory hallucinations and paranoia that have been steadily increasing over the past week. The patient 's life has been affected by these problems including leading to this hospitalization. The probable onset of symptoms was related by nonadherence to medications. The patient reports a past psychiatric history of schizoaffective disorder, bipolar type. Based on the patient's history and current presentation , his diagnosis is unspecified psychosis, substance use disorder, amphetamine type, cannabis use disorder. The patient is a moderate to high safety risk due to current psychosis. Protective factors while hospitalized include ongoing safety checks, active involvement in treatment and support from our treatment team. The patient could benefit from inpatient hospitalization for safety, crisis stabilization and medication evaluation. PLAN: (1) Psychotropic medications. After reviewing options, risks, and benefits, the patient reports he would like to wait until this INSPECTOR PACKAGER receives a list from his outpatient provider on what medications he has recently been started on. The patient does agree to Ativan 1-2 mg po q4hrs p.r.n. for agitation. (2) Labs: A1c, fasting lipid panel, liver function test. (3) Therapy: milieu and group (4) Further investigation including gathering information from patients relatives and review of past case records (5) Continued evaluation and monitoring will be ongoing during the course of patients inpatient hospitalization to inform treatment, to determine if adjustments in medication regimen may benefit patients symptoms, and for discharge planning (6) Safety plan and follow-up outpatient appointments to be established prior to discharge (7) Confer with inpatient treatment team regarding initial treatment plan (8) Review informed consent and recommendations for psychotropic medication treatment listed below now, during the course of hospitalization, and during discharge interview ESTIMATED LENGTH OF STAY: 1-3 days PSYCHOTROPIC MEDICATION TREATMENT INFORMED CONSENT and RECOMMENDATIONS: Review nature of condition, diagnosis, and prognosis. Review nature and purpose of psychotropic medication treatment. Review type of psychotropic medications being ordered. Review risk and benefits of psychotropic medication treatment. Review probable length of time will need to take medications. Review risk and benefits of not undergoing psychotropic medication treatment. Review alternative treatments to psychotropic medications. Review psychotropic medications contraindications, drug-drug interactions, side effects, and importance of reporting any side effects to a psychiatric provider or nurse during inpatient hospitalization, and upon discharge to patients psychiatric outpatient provider, primary care provider, or other health home health care worker. Review importance of asking a nurse, psychiatric provider, or primary care provider any questions or problems concerning the psychotropic medications. Verifty patient understands the information that has been provided, and understands, accepts, and agrees to psychotropic medications. Review patients safety plan and importance of patient to communicate to staff while hospitalized if patient is ever a danger to self/others, or unable to care for self, and upon discharge, the importance for patient to contact [facility] or [facility], or go to the nearest emergency room, if patient is ever a danger to self/others, or unable to care for self. Recommend that upon discharge patient establish medication management treatment with a psychiatric provider, establishes routine therapy appointments, and follow-up with primary care provider. Verify patient understands and agrees to these recommendations. /[id number]/MODL MTDD
--- NOTE | 2018-02-05 13:56 | BCON ---
[f rep st] BEHAVIORAL HEALTH CONSULTATION INTERNAL MEDICINE CONSULTATION DATE OF CONSULTATION: 02/05/2018 REFERRING PHYSICIAN: Gissel Adkins MD REASON FOR REFERRAL: Medical clearance for inpatient behavioral health stay. HISTORY OF PRESENT ILLNESS: This patient came to the emergency department yesterday on an M1 hold. He apparently had been noncompliant with medication and was behaviorally deteriorating. He was evaluated by the mental health team and admitted for further psychiatric care. He is currently without any acute medical complaints. PAST MEDICAL HISTORY: 1. Schizoaffective disorder. 2. Hepatitis B. 3. Hepatitis C. 4. Lumbar degenerative disk disease. 5. Shoulder arthritis. 6. Ventral hernia. PAST SURGICAL HISTORY: He denies having had surgeries. MEDICATIONS: 1. Cogentin 1 mg p.o. daily. 2. Clonazepam 2 mg. 3. Trazodone 50 mg. 4. Vistaril 50 mg. 5. Clozapine 25 mg. ALLERGIES: There are no known drug allergies. SOCIAL HISTORY: He lives on disability. He has a place to live and is not homeless. He is a heavy smoker. He reports he has tried to quit smoking multiple times. FAMILY HISTORY: Noncontributory. REVIEW OF SYSTEMS: He reports considerable weight loss. He has minor aches and pains, but is not in pain. He denies fevers or chills. He denies cough or dyspnea. He denies nausea, vomiting, constipation, or diarrhea, and says he has a good appetite. He feels thirsty. He says he has noted some swelling in his legs, but none currently. Otherwise, a 10-point review of systems is negative. PHYSICAL EXAM: VITAL SIGNS: Blood pressure is 100/65. Pulse is 63. Respiratory rate is 14. Oxygen saturation is 96% on room air. Temperature is 36.8 degrees centigrade. His weight is 75.8 kg for a body mass index of 22.6. Chart review shows a 5.5 kg weight loss since 11/08/2017. GENERAL: This is a well-nourished, well-developed, somewhat unkempt man with long hair and jones, lying in bed, cooperative, and in no acute distress. HEENT: Extraocular movements are intact. Pupils are equal, round, and reactive to light. Mucous membranes are moist. He has poor dentition with multiple teeth missing. NECK: Supple. HEART: There is a regular rate and rhythm, with no murmurs, rubs, or gallops. LUNGS: Clear to auscultation bilaterally. ABDOMEN: Soft, nontender, nondistended, with normoactive bowel sounds and no hepatosplenomegaly. EXTREMITIES: There is no cyanosis, clubbing, or edema. NEUROLOGIC: He is alert and oriented x3. Cranial nerves 2-12 are grossly intact. There is no focal weakness. Sensation is intact to light touch, and gait is within normal limits. LABORATORY DATA: Laboratory studies from the emergency department: CBC showed a low white blood cell count at 3.21. Absolute neutrophil count, however, was normal at 2. He had a deficit of lymphocytes and monocytes. He had a low platelet count of 92. Otherwise, CBC was within normal limits. Serum chemistry revealed a low anion gap at 5. Otherwise, renal function and electrolytes were normal. Glucose was slightly elevated at 106, but this was likely not fasting. Toxicology screen in the serum was negative for ethyl alcohol and in the urine was non-negative for amphetamines and marijuana. ASSESSMENT AND RECOMMENDATIONS: 1. Mental health issues pending further evaluation and management per Psychiatry and the mental health team. 2. Thrombocytopenia and leukopenia. Query whether this is related to clozapine. Clozapine has been known to cause thrombocytopenia, as well as the better known adverse effect of neutropenia. He does not have neutropenia, but has leukopenia. I will leave it to Psychiatry to determine whether or not clozapine should be continued and when CBC should be repeated. Though he has hepatitis B and C, he has no hepatomegaly or splenomegaly on exam, and he has no obvious signs or symptoms of chronic liver disease, so it seems unlikely that he has a large spleen, which could cause thrombocytopenia. 3. Weight loss may be related to poor dentition and mental illness. I have added a TSH on to labs that were drawn yesterday to ensure that hyperthyroidism is not contributing. 4. Partial loss of teeth. It would be in his best interest to obtain dental services after discharge. 5. Chronic hepatitis B and C. Liver function tests have been ordered by the mental health team. I do not anticipate that they will be abnormal. In any case, he should have routine followup with an infectious disease specialist or a accounts administrator. 6. Polysubstance abuse. 7. Tobacco dependence syndrome. Encouraged smoking cessation and abstinence from intoxicating substances. I see no medical contraindications to this patient's continued stay on the inpatient behavioral health unit or to any psychiatric medications or procedures. Thank you very much for including me in the care of this patient, and please do not hesitate to contact me or the hospitalist service should there be any need for further medical evaluation. /[id number]/MODL MTDD
[2018-02-05] MEDS: cloZAPine 25 MG TAB PO SCH (19:20)
[2018-02-05] MEDS: clonazePAM 0.5 MG TAB PO PRN (20:45)
[2018-02-05] MEDS ORDERED: clonazePAM 0.5 MG TAB PO SCH ×2 (21:00)
[2018-02-06] MEDS: NICOTINE 14 MG/24 HR PATCH TD SCH (11:44)
--- NOTE | 2018-02-06 15:03 | SOAPPROG ---
SOAP Progress Note Assessment/Plan: Assessment: 57 yo man with h/o psychosis and polysubstance dependence. He has been on multiple antipsychotic meds per outpatient provider, Dr. Fried, and has h/o noncompliance with treatment. Dr. Fried thought he should be tried on Clozaril. Plan: 02/06/18 14:43 1. This MD has reservations about prescribing Clozaril for Nathen despite Dr. Fried's recommendation to do so. Dr. Fried reports that patient has failed med trial of multiple different antipsychotic meds. However, patient has long h/o noncompliance with med tx. His lack of compliance with PO antipsychotic meds is the reason Dr. Fried started him on MCGRATH. He was switched to Invega Trinza from Invega Sustenna b/c he wasn't showing up for appointments and getting the Sustenna injection q month as scheduled. Now, he hasn't been showing up for his appts every 3 mos to receive the Trinza injection. He is > 1 month overdue for his most recent Trinza injection. Patient told this MD that he doesn't like taking Trinza b/c it makes him "angry." The most likely explanation for patient' s mood instability, impaired decision making, lack of judgment and inconsistent behavior is his ongoing polysubstance dependence, including meth and THC, both of which exacerbate psychosis. It's not accurate to say he has failed treatment , since patient uses substances that worsen his psychosis and impair his ability to make good decisions about treatment. A better approach than starting Clozaril would be to treat patient for chronic substance use disorder, and to increase likelihood of compliance with medication management. Starting patient on new antipsychotic regimen is unlikely to be any more successful than prior med interventions if the reasons for patient's noncompliance are not addressed. If patient isn't able to show up for one appointment every 3 mos to receive MCGRATH Invega Trinza, what is likelihood he will show up every week for required lab monitoring that is necessary with Clozaril. This makes choice of med highly suspect in this MD's opinion. 2. Patient denies any SE's since starting Clozaril, and there is no evidence of slowing, rigidity or abnormal movements. 3. Repeat CBC qweek. 4. Patient slept 15 hrs last night and today. Likely he is crashing from recent meth use. 5. Patient initially agreed to remain in hospital voluntarily to complete initiation of Clozaril trial, however, today he says he doesn't really feel he needs to be here. Yet another sign that patient is not invested in tx with Clozaril or any other medication which increases his risk for noncompliance. 6. May need to address his legal status if he chooses to leave hospital. Subjective: Met with patient, reviewed chart and d/w staff. Patient is lying in bed fully dressed. He says he was admitted on M1 b/c "I got way fucking out of control." He admits that he is frequently "angry" and "irritable," but he blames it on his antipsychotic medications, despite the fact that he hasn't received Trinza injection in > 4 months. More likely, the patient's mood instability and chronic irritability are d/t his chronic use of THC and meth. However, patient denies that he has used meth recently, despite positive UDS in ED. Given patient 's ongoing use of meth, THC and other substance, MD doesn't feel he is an appropriate candidate for Clozaril. However, Dr. Fried feels patient would benefit from trial of Clozaril. Patient initially agreed to try Clozaril, but is now stating he doesn't need to be in hospital and doesn't want to take antipsychotic meds. MD advised patient about the negative consequences and potential harmful physical and mental health effects of using mood-altering and cognitive impairing substances like THC and meth. MD encouraged patient to consider treatment for substance use disorder, but patient declined. Patient denies any thoughts, plan or intent to hurt himself or anyone else. Objective: Vital Signs Temp Pulse Resp BP Pulse Ox 36.6 C 62 14 95/56 L 93 02/06/18 06:00 02/06/18 06:00 02/06/18 06:00 02/06/18 06:00 02/06/18 06:00 MSE: Affect: Irritable Mood: "OK" TP: Disorganized, irrational TC: Denies any SI/HI, no AH/VH Insight/Judgment: Poor - Time Spent With Patient Time Spent With Patient: 20" - Pending Discharge Pending Discharge Within 24 Hours: No Pending Discharge Within 48 Hours: No ICD10 Worksheet Patient Problems: Problems Problem Status Onset Medical clearance for psychiatric admission Acute Schizoaffective disorder Acute
--- NOTE | 2018-02-06 15:25 | ASMTCMCOM ---
CM Note CM Note Notes: Pt. reports feeling "alright". Pt. stated he slept "fine". Pt. reports eating well and no issues with his current medications. Pt. denied SI, HI, AVH and paranoia. Pt. stated he is "ready to get out of here". Pt. stated he is unsure if there are any issues with returning to his apartment, adding he tried calling the "appartment lady, but she was acting weird". Pt. reports no current issues CC can help with. Pt. presents as alert, calm, somewhat passive, with a mostly pleasant demeanor and with good eye contact. Staff report pt. sleeping 15 hours and being medication compliant. Date Signed: 02/06/2018 03:25 PM Electronically Signed By:Caitlin Gill
[2018-02-06] MEDS: clonazePAM 0.5 MG TAB PO PRN ×2 (15:59→19:15)
[2018-02-06] MEDS: cloZAPine 25 MG TAB PO SCH (19:15)
[2018-02-07] MEDS: NICOTINE 14 MG/24 HR PATCH TD SCH (13:30)
--- NOTE | 2018-02-07 15:53 | ASMTCMCOM ---
CM Note CM Note Notes: Pt. reports feeling "alright". Pt. stated "He [MD] is mallory an asshole". Pt. stated the MD changed his medication to Invega, which pt. agreed to take. Pt. stated he doesn't want to be on the medication where he has to have his blood tested every week. Pt. stated he doesn't know what's going on with his apartment currently. CC offered to call apartment, pt. stated "leave that alone till I get there". Pt. stated he is concerned about losing weight. Pt. stated he has lost 10lbs in one week, adding he doesn't think he is getting enough food. Pt. denied SI, HI, AVH and paranoia. Pt. stated he "can't cook and clean for self", adding often "messes stay for a week". Pt. stated he is getting annoyed at a peer pt. ([address]) due to peer pt. bumping into pt. CC encouraged pt. to avoid peer pt. Pt. presents as alert, somewhat guarded, with a mostly pleasant demeanor, and with good eye contact. Staff report pt. sleeping at least 9 hours and being medication compliant. Date Signed: 02/07/2018 03:52 PM Electronically Signed By:Caitlin Gill
--- NOTE | 2018-02-07 17:06 | SOAPPROG ---
SOAP Progress Note Assessment/Plan: Assessment: 57 yo man with h/o psychosis and polysubstance dependence. He has been on multiple antipsychotic meds per outpatient provider, Dr. Fried, and has h/o noncompliance with treatment. Dr. Fried thought he should be tried on Clozaril. Plan: 02/06/18 14:43 1. This MD has reservations about prescribing Clozaril for Nathen despite Dr. Fried's recommendation to do so. Dr. Fried reports that patient has failed med trial of multiple different antipsychotic meds. However, patient has long h/o noncompliance with med tx. His lack of compliance with PO antipsychotic meds is the reason Dr. Fried started him on MCGRATH. He was switched to Invega Trinza from Invega Sustenna b/c he wasn't showing up for appointments and getting the Sustenna injection q month as scheduled. Now, he hasn't been showing up for his appts every 3 mos to receive the Trinza injection. He is > 1 month overdue for his most recent Trinza injection. Patient told this MD that he doesn't like taking Trinza b/c it makes him "angry." The most likely explanation for patient' s mood instability, impaired decision making, lack of judgment and inconsistent behavior is his ongoing polysubstance dependence, including meth and THC, both of which exacerbate psychosis. It's not accurate to say he has failed treatment , since patient uses substances that worsen his psychosis and impair his ability to make good decisions about treatment. A better approach than starting Clozaril would be to treat patient for chronic substance use disorder, and to increase likelihood of compliance with medication management. Starting patient on new antipsychotic regimen is unlikely to be any more successful than prior med interventions if the reasons for patient's noncompliance are not addressed. If patient isn't able to show up for one appointment every 3 mos to receive MCGRATH Invega Trinza, what is likelihood he will show up every week for required lab monitoring that is necessary with Clozaril. This makes choice of med highly suspect in this MD's opinion. 2. Patient denies any SE's since starting Clozaril, and there is no evidence of slowing, rigidity or abnormal movements. 3. Repeat CBC qweek. 4. Patient slept 15 hrs last night and today. Likely he is crashing from recent meth use. 5. Patient initially agreed to remain in hospital voluntarily to complete initiation of Clozaril trial, however, today he says he doesn't really feel he needs to be here. Yet another sign that patient is not invested in tx with Clozaril or any other medication which increases his risk for noncompliance. 6. May need to address his legal status if he chooses to leave hospital. 02/07/18 16:54 1. Patient has thrombocytopenia and leukopenia (Plt=92 and WBC=3.21). Do not recommend continuing Clozaril d/t risks associated with thrombocytopenia and agranulocytosis. 2. MD explained risks associated with Clozaril, and patient said he "didn't want to be on it anyway." He told MD that he wouldn't be able to keep appointments for blood monitoring and wasn't very good at taking pills every day. 3. Patient admitted he had problems "getting to my appointments" to get his once every 3 month injection of Invega Trinza. He blamed it on "bad communication" with [facility], and said they "never told me" when to show up for his injection. MD strongly encouraged patient to use smartphone, calendar or journal to write down his appointments and get in habit of checking in with his case worker every week. He said that would "be hard." 4. MD recommended patient reinitiate tx with MCGRATH Invega. Patient agreed, but with some reservations. He claims the shot "hurts" and says he was "more irritable" on Invega. After talking about his situation at length with MD, though, patient admitted that his irritability was largely d/t frustration with his housing situation. He perseverated on how much he doesn't like woman who works at "the credit front office developer" in his apartment building who works for [employer]. He says there is so much tension between them, that just "walking past her desk" in AM is enough to "ruin my day." He also says he sometimes doesn't leave his apartment so he doesn't "have to deal with her." He admitted "it's not the Invega" that "makes me angry." 5. MD explained to patient that most likely he will need to reinitiate tx with Invega Sustenna before switching back to Trinza, if appropriate (patient may do better to continue on Sustenna with more frequent contact with [facility] providers). Will need to contact [facility] on Thursday and find out what dose of Trinza patient was taking and when last dose was given. If last dose was < 4 weeks ago, can just give missed Trinza dose as scheduled. If > 4 weeks ago, will need to start all over with initiation of Invega Sustenna injections (2 injections within 8 days) . [address] [facility] on [facility]. Subjective: Met with patient, reviewed chart and d/w staff. Met with patient and RN, Peggy Cobb , in his room. Patient said it was "not a good option" to take Clozaril b/c he has no intention of showing up for blood monitoring appointments. He also has trouble taking pills every day. MD suggested in that case the best option for patient is to remain on MCGRATH Invega. Patient was reluctant to get injection b/c he says the "shot hurts." MD explained that if he can't take pills every day, then PO Invega is not going to be effective. MD also explained that if it's been > 4 weeks since his last Trinza injection, he will need to get 2 Invega Sustenna injections and then receive Invega Sustenna once/month for 4 mos before switching over to Trinza. Patient was not very happy about this, but MD reminded his this is why it's important to keep his appointments and keep on the right schedule so his meds remain effective. He agreed to this plan. Objective: Vital Signs Temp Pulse Resp BP Pulse Ox 36.4 C 78 20 113/76 95 02/07/18 06:00 02/07/18 06:00 02/07/18 06:00 02/07/18 06:00 02/07/18 06:00 MSE: Affect: Irritable, labile Mood: "OK" TP: Linear TC: Denies any SI/HI, no AH/VH Insight/Judgment: Poor a/e/b unwillingness to take meds as prescribed - Time Spent With Patient Time Spent With Patient: 30" - Pending Discharge Pending Discharge Within 24 Hours: No Pending Discharge Within 48 Hours: No ICD10 Worksheet Patient Problems: Problems Problem Status Onset Medical clearance for psychiatric admission Acute Schizoaffective disorder Acute
[2018-02-07] MEDS: clonazePAM 0.5 MG TAB PO PRN (18:11)
[2018-02-08 07:04] VITALS: BP 105/70
[2018-02-08] MEDS ORDERED: PALIPERIDONE PALMITATE 156 MG/ML SYR IM ONE ×2 (09:00→12:15)
--- NOTE | 2018-02-08 10:42 | SOAPPROG ---
SOAP Progress Note Assessment/Plan: Assessment: Schizoaffective disorder, stimulant use disorder, cannabis use disorder. No improvement noted. (see subjective/objective note). Patient is not safe to discharge at this time as patient continues to exhibit signs of psychosis, and express AH symptoms. Patient requires continued inpatient care because of current psychosis, and requires inpatient level of care to stabilize in order to no longer be gravely disabled due to mental illness. Patient could benefit from continued inpatient hospitalization for crisis stabilization, safety, and medication evaluation. Plan: Review psychotropic medication treatment informed consent and recommendations. After reviewing options, risk and benefits, patient agrees to continue medications and start Invega. Currently awaiting a call back from his OP psychiatrist to coordinate treatment options in planning for Invega MCGRATH: either restart Invega Sustenna 156 mg today and another 156 mg in 8 days, or continue Invega Trinza by OP psychiatrist. No other medication changes at this time as more time is needed to determine ongoing tolerability and efficacy. Plan is to continue to observe patient for response and side effects from medications, and ongoing monitoring and evaluation. Next steps are for patient to meet with nonfarm animal caretaker to plan a safe discharge plan and establish outpatient services for ongoing treatment. Consider discharge Thursday if patient is in stable condition, safe, and has a safe discharge plan. PSYCHOTROPIC MEDICATION TREATMENT INFORMED CONSENT and RECOMMENDATIONS: Review nature of condition, diagnosis, and prognosis. Review nature and purpose of psychotropic medication treatment. Review type of psychotropic medications being ordered. Review risk and benefits of psychotropic medication treatment. Review probable length of time patient will need to take medications. Review risk and benefits of not undergoing psychotropic medication treatment. Review alternative treatments to psychotropic medications. Review psychotropic medications contraindications, drug-drug interactions, side effects, and importance of reporting any side effects to a psychiatric provider or nurse during inpatient hospitalization, and upon discharge to patients psychiatric outpatient provider, primary care provider, or other health home care provider. Review importance of asking a nurse, psychiatric provider, or primary care provider any questions or problems concerning the psychotropic medications. Verify patient understands the information that has been provided, and understands, accepts, and agrees to psychotropic medications. Review patients safety plan and importance of patient to report to staff while hospitalized if patient is ever a danger to self/others, or unable to care for self, and upon discharge, the importance for patient to contact [facility] or [facility], or go to the nearest emergency room, if patient is ever a danger to self/others, or unable to care for self. Recommend that upon discharge patient establish medication management treatment with a psychiatric provider, establishes routine therapy appointments, and follow-up with primary care provider. Verify patient understands and agrees to these recommendations. 02/08/18 10:46 Subjective: Following up with patient for evaluation of psychosis and safety. Patient reports, "Clozaril gave me a headache, I'm okay with going back to Invega." Patient expresses the following psychiatric symptoms auditory hallucinations. Patient does not report undesirable side effects from current medications. Patient reports appetite as good, and reports eating all meals. Patient describes getting 8 hours of sleep. Objective: Vital Signs Temp Pulse Resp BP Pulse Ox 36.5 C 71 16 105/70 91 L 02/08/18 06:00 02/08/18 06:00 02/08/18 06:00 02/08/18 06:00 02/08/18 06:00 NURSING REPORT: Consulted with nursing for update on patients progress in treatment. Nurses report patient is engaged in treatment, is attending groups, slept 8 hours, expresses the following psychiatric symptoms: AH, exhibits the following psychiatric symptoms: withdrawn to room, is eating all meals, is taking medications as prescribed with no report of side effects, with no s/s of EPS/akathisia, and denies SI/HI, A/V hallucinations. LEGAL INTERN UPDATE: to set-up appointment with Dr. Fried, patients OP psychiatrist. The patient is a under-nourished male looking older than chronological age. Attire is appropriate and dress is casual, and is neat and clean. Grooming status is inappropriate and disheveled. Ambulation is independent. Gait is normal and coordinated. Posture is normal and relaxed. Eye contact is appropriate. Motor activity is appropriate with purposeful, organized, coordinated movements; with no involuntary movements. Attitude is cooperative and friendly. Patient appears attentive and relates well to this interviewer. Language production is spontaneous. R/R/V normal. Articulation is clear. Patient reports mood as good with adequately ranged affect. Patients thought process is linear and logical, with no loose associations, tangential thought, thought blocking, concrete thinking, or any other signs of formal thought disorder. Patient does not report suicidal, ideas, or plans. Patient reports auditory, denies visual hallucinations. Patient denies delusions. Patient does not appear to be attending to internal stimuli. Patients attention and concentration are adequate. Patient is oriented to person, place, time, and situation. Patients insight is poor. Patients judgment is poor. No evidence of gross cognitive dysfunction at any point during the interview. No evidence of apparent dysfunction in recent or remote memory. - Time Spent With Patient Time Spent With Patient: 15 minutes, met with patient individually. - Pending Discharge Pending Discharge Within 24 Hours: No Pending Discharge Within 48 Hours: No ICD10 Worksheet Patient Problems: Problems Problem Status Onset Schizoaffective disorder Acute Medical clearance for psychiatric admission Acute
[2018-02-08] MEDS: NICOTINE 14 MG/24 HR PATCH TD SCH (12:32)
[2018-02-08] MEDS ORDERED: PALIPERIDONE PALMITATE 117 MG/0.75 ML SYR IM ONE (13:00)
--- NOTE | 2018-02-08 13:12 | ASMTBHDC ---
Notes Note: Notes: Pt. reports feeling "alright". Pt. stated he needs to call his apartment complex, adding he has concerns about being evicted. Pt. stated he is fine with taking the IM Invega. Pt. stated "no big deal" when asked how he feels about discharging. Pt. reports no issues with peer pts. today. Pt. denied SI, HI, AVH and paranoia. Staff report pt. sleeping 8 hours and being medication compliant. Date Signed: 02/08/2018 01:12 PM Electronically Signed By:Caitlin Gill
--- NOTE | 2018-02-08 13:29 | BDS ---
[f rep st] BEHAVIORAL HEALTH DISCHARGE SUMMARY REASON FOR ADMISSION: From the ED note dated 02/04/2018, the patient presented on M1 hold with reported schizoaffective disorder, medication noncompliance, paranoid delusions, and lack of self-care. The patient did not answer any of the interview questions in the ED and denied any complaints. The patient was in general non cooperative in the ED for the interview. The patient was admitted involuntarily on an M1 hold due to being gravely disabled, likely due to his schizoaffective disorder being uncontrolled, as reported the patient had been off his medications for over a month. The patient was also positive for methamphetamine and cannabis at time of admission. The patient was admitted for safety crisis stabilization and medication evaluation. ADMITTING DIAGNOSES: 1. Schizoaffective disorder. 2. Methamphetamine use. 3. Cannabis use disorder, moderate, in controlled environment. ADMISSION PHYSICAL EXAM: The patient was seen by Dr. Peraza on 02/05/2018, for an internal medicine consultation. Reason for referral was medical clearance for inpatient behavioral health stay. Dr. Peraza reported he saw no medical contraindications to the patient's continued stay on the inpatient behavioral health unit or to any psychiatric medications or procedures. ADMISSION LABS: From the emergency department: CBC showed a low white blood cell count of 3.21, absolute neutrophil count, however, was normal at 2. He had a deficit of lymphocytes and monocytes. He had a low platelet count of 92, otherwise CBC was within normal limits. Serum chemistry revealed a low anion gap at 5. Otherwise, renal function and electrolytes were normal. Glucose was slightly elevated at 106, but this was likely not fasting. Toxicology screen in the serum was negative for ethyl alcohol and in the urine was non-negative for amphetamines and marijuana. HOSPITAL COURSE: The most prominent symptoms and behaviors while the patient was here were disorganized, withdrawn to room. The patient slept for quite a bit of the time during his first few days while hospitalized. Patient reported auditory hallucinations. Target symptoms during hospitalization were psychosis. Treatment modalities utilized were milieu and group therapy. Klonopin 0.25 mg twice daily was started to target anxiety, agitation symptoms was tolerated with no report of side effects and with good response. The patient was given an Invega Sustenna 156 mg IM injection prior to his discharge today with plans to follow up with his outpatient psychiatrist on 02/11/2018. The patient reported no side effects and tolerated the IM injection. The patient has improved considerably with no signs of psychiatric symptoms and patient does report some auditory hallucinations that he describes as "the voices." The patient does report that this symptom is tolerable. The patient reports he has improved since his admission, states to be in stable condition. Feels safe to discharge and contracts for safety. Patient's response to treatment was good. There were no adverse or unexpected results of treatment. The patient was safe throughout his stay. After 2 days of hospitalization, the patient was active and is in treatment, engaged in groups, and was appropriate with staff. The treatment team consensus is the patient is in stable condition and safe to discharge today. CONDITION ON DISCHARGE: Patient is in stable condition and is no longer a danger to self or others, and is not gravely disabled due to mental illness. Patient is no longer in need of inpatient level of care, and can be safely and effectively treated within the community. The patients level of risk at time of discharge is low based on the risk assessment below following this discharge summary. MSE: The patient is casually dressed and with good hygiene, and looks stated age. Patient is sitting, posture is upright, and position is relaxed. Patient appears awake, alert, and responds appropriately and reasonably during interview. Patient is engaged, relates well to interviewer, and emotional facial expression is appropriate to situation and changes appropriately with topic. Patient is cooperative, makes comfortable eye contact, and movements are voluntary, deliberate, coordinated, and smooth and even with no inappropriate movements. Patient makes laryngeal sounds effortlessly and shares conversation appropriately; pace of conversation is appropriate, and stream of talking is fluent; articulation is clear and understandable; word choice is effortless and appropriate for education level; completes sentences, occasionally pausing to think; rate and volume are appropriate for interview and setting. Patient reports mood as euthymic. Patients affect is stable with full variable range, congruent with mood, and appropriate to speech and circumstances. Patient has linear and logical thinking, with no loose associations, tangential thought, thought blocking, concrete thinking, or any other signs of formal thought disorder. Patient denies suicidal and homicidal ideation, and denies visual hallucinations, reports slight (tolerable) auditory hallucinations, and denies delusions. Patient appears to be a reliable historian with sound judgement and good insight into current condition. Patient has no apparent dysfunction in recent or remote memory noted, and no evidence of gross cognitive dysfunction noted at any point during the interview. DISCHARGE DIAGNOSES: 1. Schizoaffective disorder. 2. Stimulant use disorder, amphetamine type 3. Cannabis use disorder, moderate, in a controlled environment DISCHARGE MEDICATIONS: The patient was provided with no prescriptions at time of discharge. The patient was given an Invega Sustenna 156 mg IM injection prior to discharge with plans to follow up with his outpatient provider on 02/11. Patient tolerated injection with no report of side effects. DISPOSITION: The patient left hospital independently and voluntarily with plans to follow up with his outpatient provider. FOLLOWUP: coordinator hotels reports the appropriate outpatient follow-up services have been established and outpatient appointments have been scheduled. The patient received written instructions with times and dates of outpatient follow-up appointments. The following follow-up recommendations were provided to the patient at discharge: Continue psychotropic medications as prescribed and attend appointments as scheduled. Report any side effects to a psychiatric outpatient provider, a primary care provider, or other health customer care assistant. Address any questions or problems concerning the psychotropic medications with a psychiatric outpatient provider, a primary care provider, or other health customer care assistant. Contact [facility] or [facility], or go to the nearest emergency room, if you are ever a danger to yourself/others, or unable to care for yourself. As soon as possible, establish a routine medication management treatment with a psychiatric provider, establish routine therapy appointments, and follow-up with a primary care provider. LEGAL COURSE: The patient was admitted on an M1 hold for involuntary psychiatric hospitalization. During the patient's stay, he was placed on a short-term certification. Short-term certification was terminated and the patient discharged today independently and voluntarily. ATTITUDE AT TIME OF DISCHARGE: The patient requested to be discharged today. The patient's attitude was positive at time of discharge. The patient reports looking forward to discharging today. The patient reports he feels safe to discharge, is not a danger to himself or others, is in stable condition and contracts for safety. The patient states he will continue medications as prescribed and establish medication management treatment with an outpatient provider after discharge. The patient reports he understands the information that has been provided to him and he understands, accepts and agrees to psychotropic medications. The patient describes internal protective factors as the coping skills he has learned while hospitalized here and he plans to continue to practice these coping skills after discharge. The patient reports external protective factors as his children, and the patient describes looking forward to connecting with his children after discharge. The patient reports he has completed his wellness plan and reviewed his wellness plan with his nurse. LABS AND STUDIES: There were no pending labs and studies at time of discharge. ADVANCED DIRECTIVES: There were no advanced directives on file, and patient was full code during hospitalization. The following psychotropic medication treatment informed consent and recommendations were provided to the patient at time of discharge. Patient reports he understands, accepts, and agrees to the information that has been provided. PSYCHOTROPIC MEDICATION TREATMENT INFORMED CONSENT and RECOMMENDATIONS: Review nature of condition, diagnosis, and prognosis. Review nature and purpose of psychotropic medication treatment. Review type of psychotropic medications being prescribed. Review risk and benefits of psychotropic medication treatment. Review probable length of time will need to take medications. Review risk and benefits of not undergoing psychotropic medication treatment. Review alternative treatments to psychotropic medications. Review psychotropic medications contraindications, side effects, and importance of reporting any side effects to a psychiatric provider, primary care provider, or other health customer care assistant. Review importance of her asking a psychiatric provider or primary care provider any questions or problems concerning the psychotropic medications. Review safety plan and the importance to contact [facility] or [facility] , or go to the nearest emergency room, if ever a danger to yourself/others, or unable to care for yourself. Recommend upon discharge to establish routine medication management treatment with a psychiatric provider, establish routine therapy appointments, and follow-up with a primary care provider. Verify patient understands, accepts, and agrees to the information that has been provided. /[id number]/MODL MTDD
== END 2018-02-08 13:22 | disposition home or self-care (01) | DRG 885 ==
LOC: EDUNIT# → BBEH 21:39
PROVIDERS: ADMIT Psychiatry & Neurology Behavioral Neurology & Neuropsychiatry; ATTEND Psychiatry & Neurology Behavioral Neurology & Neuropsychiatry
DX: F25.9 Schizoaffective disorder, unspecified (principal); B18.1 Chronic viral hepatitis B without delta-agent; B18.2 Chronic viral hepatitis C; F15.90 Other stimulant use, unspecified, uncomplicated; F12.90 Cannabis use, unspecified, uncomplicated; T43.506A Underdosing of unspecified antipsychotics and neuroleptics, initial encounter; F17.200 Nicotine dependence, unspecified, uncomplicated; R63.4 Abnormal weight loss
CPT/HCPCS: 80305; G0480; J2426

== ENCOUNTER 2018-04-14 13:38 | Emergency (ER) | payer OTHER ==
[2018-04-14 13:58] VITALS: BP 103/83
--- NOTE | 2018-04-14 14:10 | EDPHY ---
H & P Stated Complaint: Feels like foot is broken-foot pain Source: Patient Exam Limitations: No limitations - Personal History Current Tetanus/Diphtheria Vaccine: Yes Current Tetanus Diphtheria and Acellular Pertussis (TDAP): Yes Tetanus Vaccine Date: 2015 - Medical/Surgical History Hx Asthma: No Hx Chronic Respiratory Disease: No Hx Diabetes: No Hx Cardiac Disease: No Hx Renal Disease: No Hx Cirrhosis: No Hx Alcoholism: No Hx HIV/AIDS: No Hx Splenectomy or Spleen Trauma: No Other PMH: PSYCHOSIS AND SCHIZO EFFECTIVE DISORDER. HERNIA REPAIR, HEP A, B, C - Social History Smoking Status: Current every day smoker Time Seen by Provider: 04/14/18 14:07 HPI/ROS: HPI: This is a 57-year-old male who presents with Chief Complaint: Left foot pain primarily on the bottom of his foot Location: Left foot Quality: Pain Duration: 1 day Signs and Symptoms: No bleeding, no radiation, no numbness, no weakness, no tingling, no incontinence, no decreased range of motion, no swelling, + pain, no fever Timing: Acute Severity: 01/10 Context: Patient is homeless presents with 1 day history of left foot pain that is primarily at the plantar aspect and primarily at the base of the 1st toe. He reports that touching the area makes the pain worsened. He wears hiking boots to ambulate and does walk quite a bit. Denies any trauma, injury, skin color changes, radiation, weakness. He has tried no [id number] medications. Patient has been using crutches to aid ambulation. Modifying Factors: See above Comment: ROS: A comprehensive 10 system review of systems is otherwise negative aside from elements mentioned in the history of present illness. MEDICAL/SURGICAL/SOCIAL HISTORY: Medical history: PSYCHOSIS AND SCHIZO EFFECTIVE DISORDER, HEP A, B, C Surgical history: HERNIA REPAIR Social history: Homeless. Smoker. CONSTITUTIONAL: Tidy adult male, awake and alert, no obvious distress HEENT: Atraumatic and normocephalic. NECK: supple Cardiovascular: Normal S1/S2, regular rate, regular rhythm, without murmur rub or gallop. PULMONARY/CHEST: Symmetrical and nontender. Clear to auscultation bilaterally. Good air movement. No accessory muscle usage. ABDOMEN: Soft, nondistended, nontender. EXTREMITIES: 2/2 pulses, strength 5/5, left Ankle: Plantar flexion to 50, dorsiflexion to 20. Foot inversion to 35 degree. No tenderness/swelling Anterior talofibular ligament. No tenderness/swelling Calcaneofibular ligament , no tenderness/swelling posterior talofibular ligament, no tenderness/swelling posterior inferior tibiofibular ligament. Achilles tendon intact. Tenderness to palpation at the ball of the foot primarily at arch that is reproducible. Pain increased with plantar. flexion DIP/PIP/MCP flexion/extension intact with good light touch sensation. no deformities, no clubbing, no cyanosis or edema. NEUROLOGICAL: no focal neuro deficits. GCS 15. Light touch sensation intact. SKIN: Warm and dry, no erythema. no rash. Good capillary refill. (Moriah Levine) Constitutional: Initial Vital Signs Temperature (C) 36.5 C 04/14/18 13:40 Heart Rate 101 H 04/14/18 13:40 Respiratory Rate 16 04/14/18 13:40 Blood Pressure 103/83 H 04/14/18 13:40 O2 Sat (%) 94 04/14/18 13:40 O2 Delivery Mode Room Air Allergies/Adverse Reactions: No Known Allergies Allergy (Verified 11/08/17 16:53) Home Medications: Medication Instructions Recorded NK [No Known Home Meds] 02/05/18 Medical Decision Making Procedures: Procedure: Splint placement. A left walking boot was applied by the Emergency Room photo technician. After application of the splint I returned and re-examined the patient. The splint was adequately immobilizing the joint and distal to the splint the patient's circulation and sensation was intact. (Moriah Levine) ED Course/Re-evaluation: I did not see this patient while he was in the emergency department. However his care was discussed with the PA while the patient was in the department. I agree with treatment plan and management (Suleiman Zhao) No signs of neurovascular compromise/tenting of skin/compartment syndrome/ extremities and joints examined above and below area of concern and are neurovascularly intact/cellulitis/foreign body/gouty arthropathy. Left foot x-ray my read shows no fracture/dislocation. Placed in walking boot. Patient already has crutches. Podiatry referral given. This patient was seen under the supervision of my secondary supervising physician. I evaluated care for this patient independently. Discussed this patient with Dr. Zhao. (Moriah Levine) Differential Diagnosis: Differential diagnosis includes but is not limited to tendinitis, fracture, plantar fasciitis, metatarsalgia. (Moriah Levine) Departure - Departure Disposition: Home, Routine, Self-Care Clinical Impression: Metatarsalgia of left foot Calcific tendonitis of foot Qualifiers: Laterality: left Qualified Code(s): M65.272 - Calcific tendinitis, left ankle and foot Condition: Good Instructions: Metatarsalgia (DC) Additional Instructions: Wear the walking boot while out of bed until pain free. Use crutches to aid ambulation. Start with toe-touch weight-bearing status and advance slowly as tolerated. Please limit use of your left foot until pain free. Take Tylenol 650 mg every 4 hours and/or Ibuprofen 600 mg every 8 hours with food as needed for pain. Apply ice for 30 minutes at a time; 2-3 times per day for the next 1-2 days. Follow up with Podiatry in 1-2 weeks if symptoms persist at which time they will evaluate and recommend with you if conservative management versus further adjuvant therapy is indicated. Referrals: Gin Douglas MD [Primary Care Provider] - As per Instructions Yessenia Arango DPM [Doctor of Podiatric Medicine] - As per Instructions
== END 2018-04-14 15:32 | disposition home or self-care (01) ==
DX: M65.272 Calcific tendinitis, left ankle and foot (principal); F17.200 Nicotine dependence, unspecified, uncomplicated; Z59.0 Homelessness
CPT/HCPCS: 73630; 99283; L4386